=== PATIENT | female | born 1990 | race Caucasian/White ===

== ENCOUNTER 2018-02-17 13:00 | Observation (INO) | payer OTHER, MEDICAID, SELFPAY ==
--- NOTE | 2018-02-17 | DI.US.S_ITS ---
PROCEDURE: US OB LIMITED INDICATIONS: VAGINAL BLEEDING OUTSIDE/PRIOR DATING DATA: Last menstrual period (LMP): Unknown. LMP-based estimated date of delivery (NAIMA): Unknown. First dating scan (date and location): 11/03/17, [facility]. Estimated date of delivery (NAIMA) from first dating scan: 04/03/18. TECHNIQUE: Real-time scanning was performed of the fetus, with image documentation. COMPARISON: [facility] Ultrasound, US, US OB > 14 WEEKS COMPLETE ANATOMY, 11/03/2017, 16:06. [facility], US, OB FU BIOPHYS DOP (PNL), 02/21/2014, 8:14. [facility] Ultrasound, US, OB SONO LTD, 1 OR MORE FETUS, 12/06/2013, 14:13. [facility] Ultrasound, US, OB SONO > 14 WKS, 10/30/2013, 9:54. FINDINGS: A single living intrauterine gestation is present. Presentation: Vertex Placenta: Placental position is anterior, without previa. Amniotic fluid index: 10.8 cm, normal range is 5-24 cm. heart rate: 135 beats per minute. IMPRESSION: Single living intrauterine gestation with heart rate of 135 beats per minute. Dictated by: Kwadwo Armstrong M.D. on 02/17/2018 at 15:34 Approved by: Kwadwo Armstrong M.D. on 02/17/2018 at 15:41
[2018-02-17 15:14] LABS: Add Manual Diff / Slide Review NO; Basophils Percent Auto 1.2 % (0-2); Eosinophils Percent Auto 1.7 % (2-4); Hematocrit 30.5 % (36-46); Hemoglobin 10.7 g/dL (12.0-16.0); Lymphocytes Percent Auto 22.2 % (25-40); Mean Corpuscular HGB Conc 35.1 % (30-36); Mean Corpuscular Hemoglobin 29.5 PG (26-34); Mean Corpuscular Volume 83.9 fL (80-100); Monocytes Percent Auto 5.9 % (3-14); Neutrophils Absolute Auto 8300 /uL (3000-5900); Platelet Count 224 X10^3/uL (150-400); Red Blood Cell Count 3.63 X10^6/uL (4.0-5.2)
--- NOTE | 2018-02-17 16:18 | PM.OBTRLD ---
Visit Information Visit Information Date of evaluation: 02/17/18 On-call OB Provider: Madie Lewis Reason for Evaluation: Yes pre-term labor Vital Signs Vital Signs: Blood pressure 136/75, pulse 110, temperature 97.6? [facility] Medical History Premature delivery before 37 weeks (Acute) Social History Smoking Status: Current some day smoker alcohol intake: former substance use type: former substance user, marijuana and amphetamines Comment: Patient denies current drug use Review of Systems Review of Systems Patient has multiple complaints of pain. She describes pain shooting down her spine. She describes pain and her upper abdomen bike extensive gas pains. She denies constipation or diarrhea. She denies nausea and vomiting. She denies fevers. She describes pain in her hip going down to her leg. She complains of losing her mucous plug with perhaps some mild blood tinge to her discharge. She denies rupture of membranes. She denies significant contractions. She does state good movement. No signs or symptoms of preeclampsia. All systems reviewed & are unremarkable except as noted in HPI and below Exam Vital Signs (past 8 hours): Blood pressure 136/75, pulse 110, temperature 97.6? Narrative Exam Narrative: HEENT exam within normal limits. Lungs are clear to auscultation and percussion. Heart is regular rate and rhythm no S3-S4 or murmurs. Abdomen is gravid and nontender. There is no CVA tenderness. Extremities without edema, nontender. Vaginal exam the cervix is firm, finger tip, 50% effaced, -3 station. Infant is vertex. heart tones had prolonged episodes of decreased variability but there were episodes of good reactivity and no decelerations. No contractions were seen on the monitor. Ultrasound performed showed an anterior placenta with no previa no evidence of abruption. Baby measured 32 weeks 4 days with good amniotic fluid. Objective Labs Result Diagrams: 02/17/18 15:00 Labs: Laboratory Results - last 24 hr 02/17/18 15:00 WBC 12.0 H RBC 3.63 L Hgb 10.7 L Hct 30.5 L MCV 83.9 MCH 29.5 MCHC 35.1 RDW 13.0 Plt Count 224 Neut % (Auto) 69.0 Lymph % (Auto) 22.2 L [place] % (Auto) 5.9 Eos % (Auto) 1.7 L Baso % (Auto) 1.2 Neut # (Auto) 8300 H Evaluation Evaluation Baseline heart rate: 150 Variability: Moderate (11-25) monitor accelerations: Episodic monitor decelerations: Absent Contraction Frequency (minutes): 0 Category of Tracing: I Cervical dilation (cm): 0 Cervical effacement (%): 50 station: -3 Laboratory results: Laboratory Tests 02/17/18 15:00 WBC 12.0 H RBC 3.63 L Hgb 10.7 L Hct 30.5 L MCV 83.9 MCH 29.5 MCHC 35.1 RDW 13.0 Plt Count 224 Neut % (Auto) 69.0 Lymph % (Auto) 22.2 L [place] % (Auto) 5.9 Eos % (Auto) 1.7 L Baso % (Auto) 1.2 Neut # (Auto) 8300 H Diagnosis, Plan/Disposition Final Diagnosis (1) Poor patient attendance of care: Current Visit: No Status: Acute (2) 33 weeks gestation of : Current Visit: No Status: Acute (3) Third trimester : Current Visit: No Status: Acute (4) Abdominal pain affecting : Current Visit: No Status: Acute Plan/Disposition Plan: Patient with poor care who arrived on Labor and delivery with concerns of abdominal pain. She thought she had a previa but ultrasound performed today shows no previa. Patient's EDC by 18 week ultrasound is 04/03/2018 placing her at 33 weeks 4 days. No specific cause of patient's discomfort were found. No specific concerns other than no care although labs and urine tox screen are pending. The patient had called to schedule an OB appointment with Dr. Vasquez but has not received a call back yet. Patient with a history of deliveries. No evidence of labor at this time. Routine precautions reviewed with the patient. OB Disposition: home
[2018-02-17 16:19] LABS: Hepatitis B Surface Antigen NEGATIVE s/c (NEGATIVE); Rubella Antibody IgG 20.1 IU/mL (>15)
[2018-02-17 16:45] LABS: Urine Amphetamines Positive (Negative); Urine Barbiturates Negative (Negative); Urine Benzodiazepines Negative (Negative); Urine Cocaine Negative (Negative); Urine MDMA Negative (Negative); Urine Methadone Negative (Negative); Urine Methamphetamines Positive (Negative); Urine Morphine/Opi cutoff 2000 Negative (Negative); Urine Oxycodone Negative (Negative); Urine Phencyclidine Negative (Negative); Urine Tetrahydrocannabinol Negative (Negative); Urine Tricyclic Antidepressant Negative (Negative)
[2018-02-24 14:14] LABS: Rapid Plasma Reagin NON-REACTIVE
== END 2018-02-17 16:42 | disposition home or self-care (01) ==
PROVIDERS: Admitting Provider Specialist; Visit Provider Specialist
DX: O09.33 Supervision of pregnancy with insufficient antenatal care, third trimester (principal); Z3A.36 36 weeks gestation of pregnancy; O99.333 Smoking (tobacco) complicating pregnancy, third trimester; O99.320 Drug use complicating pregnancy, unspecified trimester; F15.90 Other stimulant use, unspecified, uncomplicated; R10.9 Unspecified abdominal pain
CPT/HCPCS: 59025; 59050; 76815; 80055; 80305; G0378; G0379

== ENCOUNTER 2018-03-15 18:17 | Observation (INO) | payer OTHER, MEDICAID, SELFPAY ==
[2018-03-15 21:08] LABS: Urine Amphetamines Negative (Negative); Urine Barbiturates Negative (Negative); Urine Benzodiazepines Negative (Negative); Urine Cocaine Negative (Negative); Urine MDMA Negative (Negative); Urine Methadone Negative (Negative); Urine Methamphetamines Negative (Negative); Urine Morphine/Opi cutoff 2000 Negative (Negative); Urine Oxycodone Negative (Negative); Urine Phencyclidine Negative (Negative); Urine Tetrahydrocannabinol Negative (Negative); Urine Tricyclic Antidepressant Negative (Negative)
[2018-03-15 21:10] LABS: Add Manual Diff / Slide Review NO; Basophils Percent Auto 0.9 % (0-2); Hemoglobin 11.3 g/dL (12.0-16.0); Lymphocytes Percent Auto 19.3 % (25-40); Mean Corpuscular HGB Conc 34.3 % (30-36); Mean Corpuscular Volume 84.5 fL (80-100); Monocytes Percent Auto 4.3 % (3-14); Neutrophils Absolute Auto 12400 /uL (3000-5900); Neutrophils Percent Auto 74.5 % (50-75); Platelet Count 235 X10^3/uL (150-400); Red Blood Cell Count 3.91 X10^6/uL (4.0-5.2); Red Cell Distribution Width 13.3 % (11.6-14.8); White Blood Cell Count 16.7 X10^3/uL (4.5-11.0)
[2018-03-15 22:19] LABS: HIV 1 and 2 Antibody NEGATIVE (NEGATIVE)
[2018-03-15 22:30] LABS: Urine N gonorrhoeae NOT DETECTED
[2018-03-15 22:38] LABS: Urine Chlamydia NOT DETECTED
[2018-03-16 00:15] VITALS: BP 136/85
[2018-03-16 02:06] LABS: Strep Grp B PCR NEG for Grp B Strep
[2018-03-16] MEDS: LACTATED RINGERS 1,000 ML 125 ML IV (06:08)
--- NOTE | 2018-03-16 07:00 | DI.US.S_ITS ---
PROCEDURE: US OB LIMITED INDICATIONS: BLEEDING OUTSIDE/PRIOR DATING DATA: Last menstrual period (LMP): Not known. LMP-based estimated date of delivery (NAIMA): Not applicable. First dating scan (date and location): 11/03/17. Estimated date of delivery (NAIMA) from first dating scan: 04/03/18. TECHNIQUE: Real-time scanning was performed of the fetus, with image documentation. Endovaginal scanning: Performed COMPARISON: [facility], US, US OB LIMITED, 02/17/2018, 14:54. [facility] Ultrasound, US, US OB > 14 WEEKS COMPLETE ANATOMY, 11/03/2017, 16:06. FINDINGS: A single living intrauterine gestation is present. Presentation: Vertex Placenta: Placental position is anterior, without previa. Amniotic fluid index: 14.5 cm, normal range is 5-24 cm. heart rate: 158 beats per minute. Maternal cervical canal: Not measured. Estimated gestational age from initial scan: 37 weeks 7 days. IMPRESSION: 1. Single living intrauterine . 2. No evidence of placental abruption. Dictated by: Lauren Resendiz MD, PhD on 03/16/2018 at 10:22 Approved by: Lauren Resendiz MD, PhD on 03/16/2018 at 10:24
--- NOTE | 2018-03-16 07:33 | PM.OBTRLD ---
Visit Information Visit Information Date of evaluation: 03/16/18 Primary OB Provider: Josiah Vasquez On-call OB Provider: Josiah Vasquez Reason for Evaluation: Yes non-stress test, Yes rule out labor, Yes rupture of membranes and Yes other Comments/Additional reasons for admission: The patient is a 27-year-old three para two. The patient is had no antepartum visits. The patient was scheduled after presenting to Labor and delivery at 33 weeks. She was seen by Dr. Madie Lewis at that time. She was discharged from Labor and delivery for follow-up in our clinic. The patient never followed up. The patient is a drug user using methamphetamine and marijuana on a fairly frequent basis. Patient presented with lower abdominal discomfort and pain. Initial examination showed her to be 2 cm dilated 50% effaced and vertex presentation. Vital Signs Vital Signs: Vital Signs - 8 hr 03/16/18 00:15 Blood Pressure 136/85 [facility] Medical History Premature delivery before 37 weeks (Acute) Social History Smoking Status: Current every day smoker alcohol intake: former substance use type: former substance user, marijuana and amphetamines Exam Vital Signs (past 8 hours): - 03/16/18 00:15 Blood Pressure 136/85 Narrative Exam Narrative: HEENT within normal limits Chest clear to percussion auscultation Cardiovascular system normal sinus rhythm Fundus 37 cm Vertex presentation Cervix is 2 cm 70% with the vertex floating. Objective Labs Result Diagrams: 03/15/18 21:04 Labs: Laboratory Results - last 24 hr 03/15/18 03/15/18 03/15/18 18:40 18:40 21:04 WBC 16.7 H RBC 3.91 L Hgb 11.3 L Hct 33.0 L MCV 84.5 MCH 29.0 MCHC 34.3 RDW 13.3 Plt Count 235 Neut % (Auto) 74.5 Lymph % (Auto) 19.3 L [place] % (Auto) 4.3 Eos % (Auto) 1.0 L Baso % (Auto) 0.9 Neut # (Auto) 43390 H Urine Opiates Screen Negative Ur Oxycodone Screen Negative Urine Methadone Screen Negative Ur Barbiturates Screen Negative U Tricyclic Antidepress Negative Ur Phencyclidine Scrn Negative Ur Amphetamines Screen Negative U Methamphetamines Scrn Negative Ur MDMA Scrn (Ecstasy) Negative U Benzodiazepines Scrn Negative Urine Cocaine Screen Negative U Marijuana (THC) Screen Negative Ur Chlamydia DNA (PCR) Not detected HIV 1&2 Antibody Group B Strep (PCR) N gonorrhoeae DNA (PCR) Not detected Blood Type Antibody Screen 03/15/18 03/15/18 03/15/18 21:04 21:04 21:35 WBC RBC Hgb Hct MCV MCH MCHC RDW Plt Count Neut % (Auto) Lymph % (Auto) [place] % (Auto) Eos % (Auto) Baso % (Auto) Neut # (Auto) Urine Opiates Screen Ur Oxycodone Screen Urine Methadone Screen Ur Barbiturates Screen U Tricyclic Antidepress Ur Phencyclidine Scrn Ur Amphetamines Screen U Methamphetamines Scrn Ur MDMA Scrn (Ecstasy) U Benzodiazepines Scrn Urine Cocaine Screen U Marijuana (THC) Screen Ur Chlamydia DNA (PCR) HIV 1&2 Antibody Negative Group B Strep (PCR) Cancelled N gonorrhoeae DNA (PCR) Blood Type A Positive Antibody Screen Negative 03/16/18 00:40 WBC RBC Hgb Hct MCV MCH MCHC RDW Plt Count Neut % (Auto) Lymph % (Auto) [place] % (Auto) Eos % (Auto) Baso % (Auto) Neut # (Auto) Urine Opiates Screen Ur Oxycodone Screen Urine Methadone Screen Ur Barbiturates Screen U Tricyclic Antidepress Ur Phencyclidine Scrn Ur Amphetamines Screen U Methamphetamines Scrn Ur MDMA Scrn (Ecstasy) U Benzodiazepines Scrn Urine Cocaine Screen U Marijuana (THC) Screen Ur Chlamydia DNA (PCR) HIV 1&2 Antibody Group B Strep (PCR) Neg for grp b strep N gonorrhoeae DNA (PCR) Blood Type Antibody Screen Evaluation Evaluation Baseline heart rate: 150 Variability: Average (6-10) monitor accelerations: Present monitor decelerations: Absent Category of Tracing: I Cervical dilation (cm): 2 Cervical effacement (%): 70 station: -3 Laboratory results: Laboratory Tests 03/15/18 03/15/18 03/15/18 18:40 18:40 21:04 WBC 16.7 H RBC 3.91 L Hgb 11.3 L Hct 33.0 L MCV 84.5 MCH 29.0 MCHC 34.3 RDW 13.3 Plt Count 235 Neut % (Auto) 74.5 Lymph % (Auto) 19.3 L [place] % (Auto) 4.3 Eos % (Auto) 1.0 L Baso % (Auto) 0.9 Neut # (Auto) 07001 H Urine Opiates Screen Negative Ur Oxycodone Screen Negative Urine Methadone Screen Negative Ur Barbiturates Screen Negative U Tricyclic Antidepress Negative Ur Phencyclidine Scrn Negative Ur Amphetamines Screen Negative U Methamphetamines Scrn Negative Ur MDMA Scrn (Ecstasy) Negative U Benzodiazepines Scrn Negative Urine Cocaine Screen Negative U Marijuana (THC) Screen Negative Ur Chlamydia DNA (PCR) Not detected HIV 1&2 Antibody Group B Strep (PCR) N gonorrhoeae DNA (PCR) Not detected Blood Type Antibody Screen 03/15/18 03/15/18 03/15/18 21:04 21:04 21:35 WBC RBC Hgb Hct MCV MCH MCHC RDW Plt Count Neut % (Auto) Lymph % (Auto) [place] % (Auto) Eos % (Auto) Baso % (Auto) Neut # (Auto) Urine Opiates Screen Ur Oxycodone Screen Urine Methadone Screen Ur Barbiturates Screen U Tricyclic Antidepress Ur Phencyclidine Scrn Ur Amphetamines Screen U Methamphetamines Scrn Ur MDMA Scrn (Ecstasy) U Benzodiazepines Scrn Urine Cocaine Screen U Marijuana (THC) Screen Ur Chlamydia DNA (PCR) HIV 1&2 Antibody Negative Group B Strep (PCR) Cancelled N gonorrhoeae DNA (PCR) Blood Type A Positive Antibody Screen Negative 03/16/18 00:40 WBC RBC Hgb Hct MCV MCH MCHC RDW Plt Count Neut % (Auto) Lymph % (Auto) [place] % (Auto) Eos % (Auto) Baso % (Auto) Neut # (Auto) Urine Opiates Screen Ur Oxycodone Screen Urine Methadone Screen Ur Barbiturates Screen U Tricyclic Antidepress Ur Phencyclidine Scrn Ur Amphetamines Screen U Methamphetamines Scrn Ur MDMA Scrn (Ecstasy) U Benzodiazepines Scrn Urine Cocaine Screen U Marijuana (THC) Screen Ur Chlamydia DNA (PCR) HIV 1&2 Antibody Group B Strep (PCR) Neg for grp b strep N gonorrhoeae DNA (PCR) Blood Type Antibody Screen Comments: Patient very painful with irregular contractions. Cervix is not changed since admission. Patient had an ultrasound in October which places her NAIMA at April 03, 2018. She is therefore roughly 37 weeks today. That would be however plus or minus two weeks. Diagnosis, Plan/Disposition Plan/Disposition Plan: Patient with no care three para two with one history of a premature delivery in her 1st Drug use her mostly amphetamine and marijuana new Frequent contraction but no cervical change or descent of the head Ultrasound obtained which shows an anterior placenta, grade 2-3, normal fluid Discussion: In view of lack of good dates and lack of progress in labor it seems inadvisable to intervene by rupturing membranes. The patient could be as early as 35 weeks using her 18 week ultrasound. laboratory studies obtained are all negative including the drug screen. Plan is to send the patient home with subcu morphine and Ambien tablet and follow her up in one week in the clinic. OB Disposition: home
[2018-03-16] MEDS: ZOLPIDEM 5 MG TABLET 10 MG PO (08:25)
[2018-03-16] MEDS: MORPHINE 10 MG/ML INJ SUBCUT (08:25)
[2018-03-20 20:18] LABS: HSV 1 IgM Screen Negative (Negative); HSV 2 IgM Screen Negative (Negative)
== END 2018-03-16 08:50 | disposition home or self-care (01) ==
DX: Z34.83 Encounter for supervision of other normal pregnancy, third trimester (principal); Z3A.39 39 weeks gestation of pregnancy
CPT/HCPCS: 59025; 59050; 76815; 80305; 85025; 86694; 86703; 86850; 86900; 86901; 87491; 87591; 87653; 96360; 96372; G0378; G0379; J2270

== ENCOUNTER 2018-03-18 11:48 | Inpatient (IN) | payer OTHER, MEDICAID, SELFPAY ==
--- NOTE | 2018-03-18 12:56 | PM.OBHP.1 ---
OB HPI Date/Time Date of admission: 03/18/18 Date Patient Seen: 03/18/18 Time Patient Seen: 12:56 History of Present Condition Chief complaint: eval of labor : 3 Para: 2 Estimated Date of Delivery: 04/03/18 Estimated Gestational Age (weeks): 37 Narrative: Jessica Yost is a 27 year old female who arrived on Labor and delivery in active Comments: Patient had no care, she had urine tox screen positive for methamphetamines 02/17/18 negative 03/15/18 History of Present care: none Dating criteria: based on 2nd trimester US only Ultrasounds: normal mid trimester US Narrative: Unknown complications due to no care Preadmission Labs Blood type: A (+) positive -: Antibody screen: negative, GBS status: negative, HBsAG: negative, HIV: negative and RPR/VDLR: negative -: Chlamydia screen: not detected and Gonorrhea screen: not detected -: Rubella: equivocal Prior (ies) History: 12/13/2012 vaginal delivery complicated by gestational diabetes. Thirty-four weeks per patient 02/28/2014 vaginal delivery complicated by preeclampsia. Term per patient Evaluation Evaluation Baseline heart rate: 155 Variability: Moderate (11-25) monitor accelerations: Present monitor decelerations: Absent Contraction Frequency (minutes): 2 Uterine Contraction Intensity: Moderate Category of Tracing: I Cervical dilation (cm): 5 Cervical effacement (%): 80 station: -3 Non-invasive Membranes Rupture Test: negative [facility] Social History Smoking Status: Current every day smoker alcohol intake: former substance use type: former substance user, marijuana and amphetamines Meds Home Medications Medication Instructions Recorded Confirmed Type tramadol 0 tab PO Q6HP PRN #20 tab 04/16/17 Rx Allergies Allergy/AdvReac Type Severity Reaction Status Date / Time No Known Drug Allergies Allergy Verified 03/15/18 23:16 Review of Systems Review of Systems Patient came in thinking she had ruptured membranes. She believe she is in labor. She has had good movement. She denies any signs or symptoms of preeclampsia. All systems reviewed & are unremarkable except as noted in HPI and below Exam Vital Signs (past 8 hours): Blood pressure 131/92, pulse 63 Narrative Exam Narrative: HEENT exam within normal limits. Lungs are clear to auscultation and percussion. Heart is regular rate and rhythm, no S3-S4 or murmurs. No thyromegaly. Abdomen is gravid. is vertex confirmed by ultrasound with normal fluid around the . Extremities without edema and are nontender. Objective Imaging US - abdomen: My impression: Vertex infant with normal amniotic fluid volume Assessment and Plan (1) Third trimester : Current visit: Yes Status: Acute (2) Poor patient attendance of care: Current visit: Yes Status: Acute (3) Polysubstance abuse: Current visit: Yes Status: Acute (4) 37 weeks gestation of : Current visit: Yes Status: Acute Plan: Plan: 37-5/7 weeks by dates with no care, history of drug use, in active labor. Anticipate vaginal delivery. Patient is requesting epidural.
[2018-03-18] MEDS: LACTATED RINGERS 1,000 ML 100 ML IV ×2 (13:00→14:47)
[2018-03-18 13:18] LABS: Urine Amphetamines Negative (Negative); Urine Barbiturates Negative (Negative); Urine Benzodiazepines Negative (Negative); Urine Cocaine Negative (Negative); Urine MDMA Negative (Negative); Urine Methadone Negative (Negative); Urine Methamphetamines Negative (Negative); Urine Morphine/Opi cutoff 2000 Negative (Negative); Urine Oxycodone Negative (Negative); Urine Phencyclidine Negative (Negative); Urine Tetrahydrocannabinol Negative (Negative); Urine Tricyclic Antidepressant Negative (Negative)
[2018-03-18 13:43] LABS: Add Manual Diff / Slide Review NO; Basophils Percent Auto 1.1 % (0-2); Eosinophils Percent Auto 1.1 % (2-4); Hematocrit 34.4 % (36-46); Hemoglobin 11.6 g/dL (12.0-16.0); Mean Corpuscular HGB Conc 33.8 % (30-36); Mean Corpuscular Hemoglobin 28.6 PG (26-34); Mean Corpuscular Volume 84.6 fL (80-100); Monocytes Percent Auto 3.8 % (3-14); Neutrophils Absolute Auto 9500 /uL (3000-5900); Platelet Count 257 X10^3/uL (150-400); Red Blood Cell Count 4.07 X10^6/uL (4.0-5.2); Red Cell Distribution Width 13.1 % (11.6-14.8)
[2018-03-18 14:48] VITALS: BP 131/91
--- NOTE | 2018-03-18 17:15 | PM.OBPRVD ---
Events: No Care and Meconium Stained Fluid Delivery date: 03/18/18 Intrapartal events: Ineffective Pushing Delivery monitor: external FHT and external uterine Route of delivery: vacuum extraction Indication for instrumentation: maternal exhaustion Laceration description: None Estimated blood loss (mL): 200 Anesthesia type: Epidural Narrative: Patient arrived on Labor and delivery in active labor. She received an epidural catheter for pain control. heart tones category 1 to category 2 throughout labor. The patient had spontaneous rupture membranes with meconium-stained fluid. The baby was OP and patient had very ineffective pushing. Decision was made to assist with vacuum. The baby delivered over an intact perineum and was placed on maternal abdomen. After the cord stopped pulsating the cord was clamped cut and cord blood obtained. The placenta delivered spontaneously, intact, with 3 vessels. There was a large area of succenturate lobe. There were no cervical, vaginal, or perineal tears. Baby 1: Infant gender: Male Presentation: vertex position: Right Occiput Posterior Placenta delivery description: Abnormal Configuration (Patient with suction succenturate lobe) cord vessel description: 3 Vessels score (1 min): 8 score (5 min): 9 Plan for aftercare: Routine post vaginal delivery
[2018-03-18] MEDS: IBUPROFEN 600 MG TABLET PO (20:05)
[2018-03-19 03:28] VITALS: BP 131/88
[2018-03-19] MEDS: IBUPROFEN 600 MG TABLET PO ×4 (03:54→20:13)
[2018-03-19 05:49] LABS: Hematocrit 29.9 % (36-46); Hemoglobin 10.1 g/dL (12.0-16.0)
[2018-03-19] MEDS: DOCUSATE 250 MG CAPSULE PO ×2 (08:45→22:40)
--- NOTE | 2018-03-19 09:32 | P.PN_ITS ---
Subjective Date Patient Seen: 03/19/18 Time Patient Seen: 09:29 Interval history: day 1. Exam Vital Signs (past 8 hours): Blood pressure 138/74, pulse of 80, temperature 98.8? 03/19/18 03:28 Blood Pressure 131/88 Narrative Exam Narrative: Patient's abdomen is soft, nontender. Uterus is firm, at U, nontender. Mild lochia. Extremities without edema and nontender. Objective Labs Result Diagrams: 03/19/18 05:25 Labs: Laboratory Results - last 24 hr 03/18/18 03/18/18 03/18/18 13:30 13:30 Unknown WBC 13.0 H RBC 4.07 Hgb 11.6 L Hct 34.4 L MCV 84.6 MCH 28.6 MCHC 33.8 RDW 13.1 Plt Count 257 Neut % (Auto) 73.0 Lymph % (Auto) 21.0 L [place] % (Auto) 3.8 Eos % (Auto) 1.1 L Baso % (Auto) 1.1 Neut # (Auto) 9500 H Urine Opiates Screen Negative Ur Oxycodone Screen Negative Urine Methadone Screen Negative Ur Barbiturates Screen Negative U Tricyclic Antidepress Negative Ur Phencyclidine Scrn Negative Ur Amphetamines Screen Negative U Methamphetamines Scrn Negative Ur MDMA Scrn (Ecstasy) Negative U Benzodiazepines Scrn Negative Urine Cocaine Screen Negative U Marijuana (THC) Screen Negative Blood Type A Positive Antibody Screen Negative 03/19/18 05:25 WBC RBC Hgb 10.1 L Hct 29.9 L MCV MCH MCHC RDW Plt Count Neut % (Auto) Lymph % (Auto) [place] % (Auto) Eos % (Auto) Baso % (Auto) Neut # (Auto) Urine Opiates Screen Ur Oxycodone Screen Urine Methadone Screen Ur Barbiturates Screen U Tricyclic Antidepress Ur Phencyclidine Scrn Ur Amphetamines Screen U Methamphetamines Scrn Ur MDMA Scrn (Ecstasy) U Benzodiazepines Scrn Urine Cocaine Screen U Marijuana (THC) Screen Blood Type Antibody Screen Assessment & Plan (1) Status post vacuum-assisted vaginal delivery: Current visit: Yes Status: Acute Plan: Assessment/Plan Narrative: day 1 with both and mother doing well. Routine care.
--- NOTE | 2018-03-19 12:46 | CM.SWNOTE ---
CPS Referral: According to the conversation w/ RN Maulik; CPS was contacted last night d/t mom's h/o +meth screens during care. Mom has 2 other children that are not in her custody. Mom had minimal care per report and FOB is possibly in alf but on work release (?) Baby is healthy and showing no s/sx of w/d. Mom was neg for meth, + for tricyclics only upon admission. Mom breast feeding per Maulik. This DIRECT MARKETING SPECIALIST spoke briefly w/the CPS crayon painter/ Silvia Murphy who was going to speak w/mom and family today, no needs from this DIRECT MARKETING SPECIALIST at this time. This DIRECT MARKETING SPECIALIST leaving d/t low census policy today although nursing staff aware that if needed, the attending physician for baby can place a medical hold if there are concerns about unsafe DCP. DIRECT MARKETING SPECIALIST will be scheduled Tuesday, please request an DIRECT MARKETING SPECIALIST consult if attention is needed. ALEX Wagner
[2018-03-19] MEDS: ACETAMINOPHEN 325 MG TABLET 650 MG PO (19:27)
[2018-03-20] MEDS: IBUPROFEN 600 MG TABLET PO ×2 (01:52→08:01)
[2018-03-20] MEDS: DOCUSATE 250 MG CAPSULE PO (07:59)
--- NOTE | 2018-03-20 08:17 | PM.OBDS.1 ---
Discharge Providers Date of admission: 03/18/18 11:48 Consults: 03/18/18 12:32 Consult to Anesthesiology Urgent Comment: Consulting Provider: Anesthesiologist Reason for consultation: Epidural Has provider been notified: No 03/18/18 17:28 Consult to Eyeglass Lens Grinder Routine Comment: Consult to General Machinist Routine Comment: Methamphetamine positive urine Discharge provider: Madie Lewis MD Discharge Date: 03/20/18 Summary Date Patient Seen: 03/20/18 Time Patient Seen: 08:18 Hospital Course: Patient arrived on Labor and delivery in active labor. She received an epidural catheter for pain control. heart tones category 1 to category 2 throughout labor. Patient was an effective pusher with the baby being OP and decision was made to proceed with vacuum assisted delivery. She delivered over an intact perineum. There was mild shoulder dystocia the male 's suffered a clavicle fracture. Baby B weighed 7 lb 2 oz Both infant and mother doing well now. Patient is . Her pain is under control. She is urinating and ambulating well. Blood pressure 121/70, pulse 72, temperature 98.6? Patient's abdomen is soft, nontender. Uterus is firm, at U, nontender. Perineum is intact. Mild lochia. Extremities without edema and nontender. Patient's blood type is A positive, she is rubella equivocal but patient declined rubella vaccine prior to discharge. Peripartum Data Infant Delivery Method: Assisted Delivery (Vacuum assist) Laceration description: None Procedures: Epidural catheter, vacuum assisted vaginal delivery complications: none 1: Gender: Male Discharge Diagnosis (1) Status post vacuum-assisted vaginal delivery: Status: Acute Status at Discharge Functional status at discharge: independent ambulation Overall status at discharge: patient is progressing back to baseline Time Spent with Patient Total time spent providing and/or coordinating discharge services: Objective Labs Result Diagrams: 03/19/18 05:25 Discharge Plan Discharge Plan Patient Disposition: Home Discharge Med Rec/Prescriptions Prescriptions: New ibuprofen 600 mg Tablet 600 mg PO Q6HR PRN (Reason: Pain, Mild (1-3)) Qty: 30 RF: 0 docusate sodium 250 mg Capsule 250 mg PO DAILY Qty: 20 RF: 0 ferrous gluconate 324 mg (38 mg iron) Tablet 324 mg PO DAILY Qty: 30 RF: 0 Discontinued tramadol 50 MG tablet PO Q6HP PRNQty: 20 RF: 0 Follow up/Referrals: Madie Lewis MD [Physician] - 1 Month (Apr 20, [address] Lewis for exam. [phone] ) Provider Discharge Instructions Diet: Regular Activity: Nothing in vagina for 4 week Visit Report/Discharge Packet Stand Alone Forms: Discharge: Care Visit Report Forms: Stroke Signs & Symptoms Discharge Data Attending Provider: Madie Lewis Admit Date/Time: 03/18/18 11:48
[2018-03-20 09:05] VITALS: BP 121/70; PULSE 72; RESP 16; TEMP 36.6
[2018-03-20] MEDS: FERROUS GLUCONATE 324 MG TABLET PO (09:25)
[2018-03-20] MEDS: ACETAMINOPHEN 325 MG TABLET 650 MG PO (09:25)
--- NOTE | 2018-03-20 14:37 | CM.SWNOTE ---
REFRIGERATION PLANT OPERATOR Note continued: Reviewed notes. Patient currently medically stable for discharge from [facility] However, baby boy has not yet been cleared by [facility]. REFRIGERATION PLANT OPERATOR received call this AM from patient's RN/Katie re: [facility] status. She reports that she has spoken to assigned professional skateboarder/Moni and that she is expected at [facility] today around 2:00pm to determine whether or not will be going home with patient. REFRIGERATION PLANT OPERATOR placed call to Moni ph# [phone], she confirms that she would like to meet with patient prior to leaving with her. Notified Moni if she had any questions that REFRIGERATION PLANT OPERATOR would be available until 4:00pm and provided her with direct line. RN/Katie updated. P: Pending [facility] determination. Patient remains with in room. RN reports patient has been appropriate with . Patient has been cleared to discharge medically. has not pending [facility]. ALEX Carbajal
== END 2018-03-20 09:57 | disposition home or self-care (01) | DRG 560 ==
PROVIDERS: Admitting Provider Specialist; Visit Provider Specialist
DX: O99.324 Drug use complicating childbirth (principal); F15.90 Other stimulant use, unspecified, uncomplicated; Z3A.37 37 weeks gestation of pregnancy; Z37.0 Single live birth; O75.81 Maternal exhaustion complicating labor and delivery; O64.0XX0 Obstructed labor due to incomplete rotation of fetal head, not applicable or unspecified
CPT/HCPCS: 01967; 36415; 59050; 59409; 76815; 80305; 84112; 85014; 85018; 85025; 86850; 86900; 86901; 99222; 99238; G0379; J3010

== ENCOUNTER 2019-06-24 15:20 | Emergency (ER) | payer OTHER, SELFPAY ==
[2019-06-24 15:30] VITALS: BP 133/93; PULSE 83; RESP 14; TEMP 36.9; O2SAT 98
[2019-06-24 16:30] LABS: Pregnancy Test Serum,Qual Negative (Negative)
--- NOTE | 2019-06-24 16:42 | ED.RECABL ---
HPI - Recheck/Abnormal Lab/Rx General Chief Complaint: Recheck/Abnormal Lab/Rx Stated Complaint: fit for retirement Time Seen by Provider: 06/24/19 16:34 Source: patient and police Mode of arrival: other Limitations: no limitations History of Present Illness HPI narrative: Patient is a 28-year-old female brought in by police for fitness for retirement. Is reported by the patient that she is and has had ?high risk? pregnancies in the past. She states that 2 weeks ago she was seen at an outside facility and was told that she was . She was bleeding at the time. No current vaginal bleeding Related Data Home Medications Medication Instructions Recorded Confirmed PNV cmb#95-ferrous fumarate-FA 1 tab PO DAILY 06/24/19 06/24/19 [] Allergies Allergy/AdvReac Type Severity Reaction Status Date / Time No Known Drug Allergies Allergy Verified 03/15/18 23:16 Review of Systems Constitutional Constitutional: Denies fatigue and Denies fever(s) Genitourinary Genitourinary: Denies vaginal discharge Endocrine Endocrine: Denies fatigue Hematologic/Lymphatic Hematologic/Lymphatic: Denies easy bleeding and Denies easy bruising Patient History Medical History Premature delivery before 37 weeks (Acute) Social History Smoking Status: Current every day smoker alcohol intake: former substance use type: former substance user, marijuana and amphetamines Smoking Status: Current every day smoker alcohol intake frequency: 0-2 drinks per day Substance Use Type: does not use Exam Initial Vital Signs Initial Vital Signs: Vital Signs Temperature 98.4 F 06/24/19 15:30 Pulse Rate 83 06/24/19 15:30 Respiratory Rate 14 06/24/19 15:30 Blood Pressure 133/93 H 06/24/19 15:30 Pulse Oximetry 98 06/24/19 15:30 Const General: comfortable and well developed Limitations: mental status not altered Resp Effort & Inspection: normal respiratory effort Cardio Rate: regular rate Skin Lesions: no lesions Rashes: no rashes Neuro General: alert, awake and oriented x3 Extrem General: No edema Course Orders Ordered: ED Orders 06/24/19 16:00 Test Serum,Qual Stat Vital Signs Vital signs: Vital Signs - 8 hr 06/24/19 15:30 Temperature 98.4 F Pulse Rate 83 Respiratory Rate 14 Blood Pressure 133/93 H Pulse Oximetry 98 MDM - Recheck/Abnormal Lab/Rx Lab Data Attestation: I reviewed the patient's lab results. Labs: Lab Results 06/24/19 Range/Units 16:00 Serum , Qual Negative (Negative) MDM Narrative Medical decision making narrative: Patient has a negative serum test today. I did inform her of this. She seems surprised stating that 2 weeks ago she was told she was . I told her that if she was bleeding at that time that potentially she had a miscarriage. No further workup needed in the emergency department. Informed her that the medical department at the retirement could work her up further if needed. Patient is fit for retirement. She was discharged in the custody of police. Discharge Plan Departure Patient Disposition: Released, Other Clinical Impression: Medical clearance for incarceration Discharge Date/Time: 06/24/19 16:52 Activity Restrictions/Additional Instructions: Your test was negative today. Further workup can be provided by the medical department at the retirement. You are cleared for retirement. Prescriptions: No Action PNV cmb#95-ferrous fumarate-FA [] 28 mg iron- 800 mcg Tablet 1 tab PO DAILY RF: 0
== END 2019-06-24 16:52 | disposition home or self-care (01) ==
PROVIDERS: Emergency Provider Emergency Medicine
DX: Z02.89 Encounter for other administrative examinations (principal)
CPT/HCPCS: 36415; 84703; 99283